=== PATIENT | male | born 1985 | race Caucasian/White ===

== ENCOUNTER 2019-03-22 19:03 | Emergency (ER) | payer OTHER ==
[2019-03-22] MEDS ORDERED: OMEG-96 PO (19:11)
--- NOTE | 2019-03-22 19:13 | ER Report ---
History and Physical Time Seen By MD: 19:10 Hx. of Stated Complaint: PATIENT HAS HAD A PAIN IN HIS CHEST FOR THE LAST 3DAYS, TODAY IT IS WORSE AND HE IS HAVING SHORTNESS OF BREATH WELL, PATIENT STATES IT FEELS LIKE A PRESSURE. HPI/ROS CHIEF COMPLAINT: Chest pain HISTORY OF PRESENT ILLNESS: This is a 33-year-old male. He has been having chest pain for the last 3 days. Mild on the first day and slowly progressing over the course of 3 days. Central chest area with radiation to the left shoulder area and neck. Pain worsens with movement and with deep breaths. He feels a little short of breath because it is painful to take deep breaths. Has never had pain like this in the past. Denies any nausea or vomiting. No acid reflux symptoms. Denies any abdominal pain. He has been eating and drinking normally. 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 He denies any fevers or chills. No cough, sore throat, or runny nose. No headache or dizziness. REVIEW OF SYSTEMS: Constitutional: No fever or chills. Eyes: No vision changes. ENT: No sore throat. No congestion. Cardiovascular: As above. Respiratory: No cough. No shortness of breath. Gastrointestinal: No abdominal pain. No nausea or vomiting. Genitourinary: No dysuria. No frequency Musculoskeletal: No back pain. Skin: No rashes. Neurological: No numbness. No weakness. Allergies: Coded Allergies: No Known Drug Allergies (Unverified , 03/22/19) Home Meds Active Scripts Hydrocodone Bit/Acetaminophen (HYDROCODON-ACETAMINOPHEN 5-325) 1 Each Tablet, 1 EACH PO Q4H PRN for PAIN, #8 TAB 0 Refills Prov:MAIDA AVINA MD 03/22/19 Ketorolac Tromethamine (KETOROLAC TROMETHAMINE) 10 Mg Tab, 10 MG PO Q6H PRN for PAIN, #12 TAB 0 Refills Prov:MAIDA AVINA MD 03/22/19 Reported Medications [place]-3 Fatty Acids/Fish Oil (OMEGA 3 1,000 MG SOFTGEL) 1 Each Capsule, 1 EACH PO QDAY, CAPSULE 03/22/19 Reviewed Nurses Notes: Yes Constitutional Vital Sign - Last 24 Hours 03/22/19 03/22/19 03/22/19 03/22/19 19:06 19:18 19:30 19:33 Temp 98.1 Pulse 112 111 104 Resp 26 13 20 B/P (MAP) 131/84 115/68 (84) Pulse Ox 92 92 90 O2 Delivery Room Air 03/22/19 03/22/19 03/22/19 03/22/19 19:46 20:00 20:03 20:18 Pulse 104 101 Resp 20 20 B/P (MAP) 123/79 (94) Pulse Ox 95 95 O2 Flow Rate 2.0 03/22/19 03/22/19 03/22/19 20:30 20:33 20:48 Pulse 101 100 Resp 17 21 B/P (MAP) 124/75 (91) Pulse Ox 95 95 Physical Exam General Appearance: The patient is alert. Mild acute distress. Eyes: Pupils are equal, round. No pallor, injection or icterus. ENT: Mucous membranes are moist. Neck: Supple and non tender. Respiratory: Lungs are clear to auscultation. Cardiovascular: Tachycardia but with a regular rhythm. No murmurs, gallops or rubs. No edema. Gastrointestinal: Abdomen is soft and non tender. Nondistended. Normal active bowel sounds. Neurological: Alert and oriented x3. No focal neurologic deficits Skin: Warm and dry. No rashes. Musculoskeletal: Pain with palpation of the chest wall, twisting or sitting up, and with deep breaths. Full range of motion. No tenderness in palpation of the cervical, thoracic and lumbar spine. DIFFERENTIAL DIAGNOSIS: After history and physical exam, differential diagnosis was considered for chest pain including but not limited to myocardial ischemia, pericarditis pulmonary embolus, chest wall pain, pleural inflammation and pulmonary infectious causes. Medical Decision Making Data Points Result Diagram: 03/22/19190503/22/191905 Laboratory Hematology Test 03/22/19 19:06 White Blood Count 12.5 k/uL (4.5-11.0) H Red Blood Count 5.62 M/uL (4.00-5.60) H Hemoglobin 16.1 g/dL (14.0-18.0) Hematocrit 46.2 % (42.0-52.0) Mean Corpuscular Volume 82.2 fL (80.0-96.0) Mean Corpuscular Hemoglobin 28.6 pg (26.0-33.0) Mean Corpuscular Hemoglobin Concent 34.9 g/dL (32.0-36.0) Red Cell Distribution Width 13.1 % (11.5-14.5) Platelet Count 272 K/uL (150-450) Mean Platelet Volume 8.7 fL (7.2-11.1) Neutrophils (%) (Auto) 67.4 % (39.4-72.5) Lymphocytes (%) (Auto) 24.3 % (17.6-49.6) Monocytes (%) (Auto) 6.3 % (4.1-12.4) Eosinophils (%) (Auto) 1.1 % (0.4-6.7) Basophils (%) (Auto) 0.9 % (0.3-1.4) Nucleated RBC Relative Count (auto) 0.0 /100WBC Neutrophils # (Auto) 8.4 K/uL (2.0-7.4) H Lymphocytes # (Auto) 3.0 K/uL (1.3-3.6) Monocytes # (Auto) 0.8 K/uL (0.3-1.0) Eosinophils # (Auto) 0.1 K/uL (0.0-0.5) Basophils # (Auto) 0.1 K/uL (0.0-0.1) Nucleated RBC Absolute Count (auto) 0.00 K/uL Chemistry Test 03/22/19 19:06 Sodium Level 141 mmol/L (137-145) Potassium Level 3.8 mmol/L (3.5-5.0) Chloride Level 103 mmol/L (98-107) Carbon Dioxide Level 24 mmol/L (22-30) Blood Urea Nitrogen 16 mg/dl (9-21) Creatinine 1.00 mg/dl (0.66-1.25) Glomerular Filtration Rate Calc > 60.0 Random Glucose 114 mg/dl (75-110) Calcium Level 9.8 mg/dl (8.4-10.2) Total Bilirubin 0.6 mg/dl (0.2-1.3) Aspartate Amino Transf (AST/SGOT) 54 U/L (0-35) Alanine Aminotransferase (ALT/SGPT) 82 U/L (0-56) Alkaline Phosphatase 97 U/L (0-126) Troponin I < 0.012 ng/ml B-Type Natriuretic Peptide < 5 pg/ml (0-100) Total Protein 8.1 g/dl (6.3-8.2) Albumin 4.6 g/dl (3.5-5.0) Coagulation Test 03/22/19 19:06 D-Dimer Quantitative (PE/DVT) < 0.27 ug/ml (0-0.50) EKG/Imaging EKG Interpretation 12 lead EKG: Rhythm: Sinus tachycardia, rate 112 [place]: normal QRS: normal ST segments: Normal, no ST elevation or depression noted Imaging EXAMINATION: Chest 2 Views HISTORY: Chest pain. COMPARISON: None. FINDINGS: The lungs are clear. No focal consolidation or pleural fluid. No pneumothorax. Normal cardiomediastinal silhouette, with normal heart size and pulmonary vascularity. Visualized osseous structures are unremarkable. IMPRESSION: Negative chest. Report Dictated By: Jose Roberto Uriostegui MD at 03/22/2019 9:11 PM ED Course/Re-evaluation Clinical Indication for ER IV: Hydration, IV Access ED Course Troponin, Ddimer, CBC and CMP negative. Chest x-ray negative. EKG negative. Based on symptom progression, pattern and description now, seems to be inflammatory chest wall pain or pleuritic pain. Discussed with the patient. Given Toradol and Lortab for pain. Two days off work, rest and fluid intake, with anti-inflammatory treatment. See below. Decision to Disposition Date: Mar 22, 2019 Decision to Disposition Time: 21:12 Depart Departure Latest Vital Signs Vital Signs Date Time Temp Pulse Resp B/P (MAP) Pulse Ox O2 Delivery O2 Flow Rate FiO2 03/22/19 20:48 100 21 95 03/22/19 20:30 124/75 (91) 03/22/19 19:46 2.0 03/22/19 19:06 98.1 Room Air Impression: Primary Impression: Chest wall pain Condition: Improved Disposition: HOME OR SELF-CARE New Scripts Hydrocodone Bit/Acetaminophen (HYDROCODON-ACETAMINOPHEN 5-325) 1 Each Tablet 1 EACH PO Q4H PRN for PAIN, #8 TAB 0 Refills Prov: MAIDA AVINA MD 03/22/19 Ketorolac Tromethamine (KETOROLAC TROMETHAMINE) 10 Mg Tab 10 MG PO Q6H PRN for PAIN, #12 TAB 0 Refills Prov: MAIDA AVINA MD 03/22/19 Patient Instructions: Chest Wall Pain (ED) Additional Instructions: Your chest pain appears to be due to inflammation in the lining of the lungs and chest wall. This is not dangerous, but can be very painful. We recommend rest and increased fluid intake as well as anti-inflammatory medicines. Take the next 2 days off work to rest. Take the anti-inflammatory medicine called Toradol, 10mg tablet every 6 hours for the next 3 days. Once done with the Toradol, you can begin using Ibuprofen 200mg over the counter tablets, take 4 tablets every 8 hours as needed for pain. For more severe pain over the next few days, you can use Lortab 5/325, one every 4 hours as needed for severe pain. No sign of heart attack, blood clots in lungs, or pneumonia on workup tonight. MAIDA AVINA MD Mar 22, 2019 19:13
[2019-03-22] MEDS ORDERED: NS(*) 0.9% 1000 ML BAG 1,000 ML IV ONE (19:24)
[2019-03-22] MEDS ORDERED: ASPIRIN 81 MG CHEW PO ONE (19:25)
--- NOTE | 2019-03-22 19:29 | EKG ---
FACILITY: [facility] [place] PATIENT NAME: SMILEY CONKLIN : [id number] MR: [id number] V: [id number] EXAM DATE: ORDERING PHYSICIAN: MAIDA AVINA TECHNOLOGIST: KALEB Delacruz Reason : CARDIAC Blood Pressure : / mmHG Vent. Rate : 112 BPM Atrial Rate : 112 BPM P-R Int : 140 ms QRS Dur : 090 ms QT Int : 322 ms P-R-T Axes : 050 090 023 degrees QTc Int : 439 ms Sinus tachycardia Probable left atrial enlargement Nonspecific ST findings inferior leads No previous ECGs available Confirmed by CINDY HDZ ([id number] on 03/23/2019 5:49:27 AM Referred By: Confirmed By:CINDY HDZ
[2019-03-22 19:33] LABS: PLATELET COUNT, AUTOMATED 272 K/uL (150-450)
[2019-03-22 21:00] VITALS: BP 122/80
[2019-03-22] MEDS ORDERED: KETOROLAC 30 MG/ML VIAL IVP ONE (21:10)
[2019-03-22] MEDS ORDERED: APAP/HYDROCODONE 325/5 TAB PO ONE (21:10)
[2019-03-22] MEDS ORDERED: ACET/HYDROC 5/325MG TH ER ONLY 2 TAB/BOTTLE PO ONE (21:15)
[2019-03-22] MEDS ORDERED: KETOROLAC TROM 10 MG TAB TH PO ONE (21:15)
[2019-03-22] MEDS ORDERED: LOR5/325 PO (21:18)
[2019-03-22] MEDS ORDERED: KET10 PO (21:18)
--- NOTE | 2019-03-22 21:18 | RADIOLOGY IMAGING REPORT ---
FACILITY: [facility] PATIENT NAME: Liborio Johnston : 1985 MR: [id number] V: [id number] EXAM DATE: ORDERING PHYSICIAN: MAIDA AVINA TECHNOLOGIST: Location: [facility] Patient: Liborio Johnston : 1985 Visit/Account:[id number] Date of Sevice: 03/22/2019 EXAMINATION: Chest 2 Views HISTORY: Chest pain. COMPARISON: None. FINDINGS: The lungs are clear. No focal consolidation or pleural fluid. No pneumothorax. Normal cardiomediastinal silhouette, with normal heart size and pulmonary vascularity. Visualized osseous structures are unremarkable. IMPRESSION: Negative chest. Report Dictated By: Jose Roberto Uriostegui MD at 03/22/2019 9:11 PM Report E-Signed By: Jose Roberto Uriostegui MD at 03/22/2019 9:12 PM WSN:[email or web address]
== END 2019-03-22 21:32 | disposition home or self-care (01) ==
LOC: ER 19:29
DX: R07.89 Other chest pain (principal)
CPT/HCPCS: 71046; 83880; 84484; 85025; 85379; 93005; 96361; 96374; 99283; J1885; J7030; 82040; 82247; 82310; 82374; 82435; 82565; 82947; 84075; 84132; 84155; 84295; 84450; 84460; 84520